=== PATIENT | female | born 1990 | race Caucasian/White ===

== ENCOUNTER 2016-12-09 21:35 | Emergency (ER) | payer OTHER ==
[~2016-12-09] VITALS: Ht 177.8 cm; Wt 90.7 kg
[~2016-12-09 21:35] MED LIST: CIPROFLOXACIN500 MG PO; PYRIDIUM100 MG PO
[2016-12-09 21:43] VITALS: BP 122/82
--- NOTE | 2016-12-09 21:54 | ED UPPER/LOWER EXTREMITY COMPL ---
History of Present Illness General Chief Complaint: Lower Extremity Problems Stated Complaint: " LT FOOT SWOLLEN AND PAIN SINCE TODAY" Source: patient, family Exam Limitations: no limitations Vital Signs & Intake/Output Vital Signs & Intake/Output Vital Signs Date Time Temp Pulse Resp B/P Pulse O2 O2 Flow FiO2 Ox Delivery Rate 12/093 98.4 101 20 122/82 97 Room Air Allergies Coded Allergies: cefprozil (From CEFZIL) (Mild, RASH 12/09/16) Reconcile Medications CIPROFLOXACIN HCL (Ciprofloxacin HCl) 500 MG TAB 1 TAB PO BID UTI PHENAZOPYRIDINE HCL (Pyridium) 100 MG TAB 100 MG PO TID PRN URINARY PAIN Triage Note: TRIAGE: PT TO ER C/C L FOOT PAINFUL AND SWOLLEN SINCE APPROX 3 PM. ONSET WHILE AT WORK A ELECT[employer]. STATES THE VEIN IS POPPING OUT. DENIES ANY INJURY. Triage Nurses Notes Reviewed? yes Onset: Abrupt Duration: day(s): (1) Timing: single episode today Severity: mild Method of Injury: NO INJURY : No Patient currently breastfeeds: No HPI: This is a 26-year-old healthy female presents to the ER chief complaint of left foot pain and some swelling that started today. Patient states that she works in a [employer] and stands on her feet all day long. Denies any trauma. She has been wearing some new shoes but denies that that they have been giving her any pain. No control use. She states that her vein looked like it was popping out and became worried and wanted to come to the ER. Pain is mild in intensity. She does not want anything for pain. Past History Travel History Traveled to [place] past 21 day No Medical History Any Pertinent Medical History? see below for history Neurological: NONE EENT: NONE Cardiovascular: NONE Respiratory: NONE Gastrointestinal: NONE Hepatic: NONE Renal: NONE Musculoskeletal: NONE Psychiatric: substance abuse Endocrine: NONE Blood Disorders: NONE Cancer(s): NONE PIPE FITTER AMMONIA/Reproductive: NONE Surgical History Surgical History: N Psychosocial History What is your primary language Sierra Leonean Tobacco Use: Current Daily Use Daily Tobacco Use Amount/Type: => 5 Cigarettes daily ETOH Use: denies use Illicit Drug Use: denies illicit drug use Family History Hx Contributory? No Review of Systems Review of Systems Constitutional: Denies: chills, fever. EENTM: Reports: no symptoms. Respiratory: Reports: no symptoms. Cardiovascular: Denies: chest pain. Gastrointestinal/Abdominal: Reports: no symptoms. Genitourinary: Reports: no symptoms. Musculoskeletal: Reports: joint pain. Skin: Reports: no symptoms. Neurological/Psychological: Reports: no symptoms. Hematologic/Endocrine: Reports: bruising. Denies: bleeding, polyuria, polydipsia. Immunological: Reports: no symptoms. All Other Systems: Reviewed and Negative Physical Exam Physical Exam General Appearance: well developed/nourished, alert, awake, mild distress Head: atraumatic Eyes: Bilateral: PERRL, EOMI. Ears, Nose, Throat: normal pharynx, normal ENT inspection, hearing grossly normal Neck: normal inspection, supple Cardiovascular/Respiratory: regular rate/rhythm Back: normal inspection Skin: intact, normal color, warm/dry Lymphatic: no anterior cervical zoila Progress Differential Diagnosis: contusion, STRESS FRACTURE Plan of Care: Orders Procedure Date/time Status XRY-FOOT COMPLETE, LEFT 12/09 2156 Active Diagnostic Imaging: Viewed by Me: Radiology Read. Discussed w/RAD: Radiology Read. Radiology Impression: PATIENT: JOSE HARRIS PRESENT AGE: 26 PATIENT ACCOUNT NO: [id number] : 88 LOCATION: [facility] ORDERING PHYSICIAN: CODIE MCNAMARA MD SERVICE DATE: 12/09/16 EXAM TYPE: RAD - XRY-FOOT COMPLETE, LEFT EXAMINATION: XR FOOT, LEFT CLINICAL INFORMATION: Left foot pain and swelling. Evaluate for a fracture. COMPARISON: No relevant prior studies are available for comparison. TECHNIQUE: AP, lateral, and oblique views of the left foot. FINDINGS: No fracture or dislocation. No significant joint space narrowing or marginal osteophytosis. No osseous erosion. No significant ankle joint effusion. No abnormal soft tissue calcification. IMPRESSION: Normal radiographic examination of the left foot. DICTATED BY: NORBERTO CORNELIUS MD DATE/TIME DICTATED:12/09/162235 DIVE SUPERINTENDENT:EDILBERTO DATE/TIME TRANSCRIBED:12/09/162235 CONFIDENTIAL, DO NOT COPY WITHOUT APPROPRIATE AUTHORIZATION. <Electronically signed in Other Vendor System> SIGNED BY: NORBERTO CORNELIUS MD 12/09/162240 Departure Departure Time of Disposition: 2238 Disposition: HOME OR SELF CARE Condition: Stable Clinical Impression Primary Impression: Foot contusion Referrals: PATIENT HAS NO PRIMARY CARE DR (PCP/Family) Additional Instructions: TAKE MOTRIN OR TYLENOL NEEDED FOR PAIN/SWELLING. ICE, REST AND ELEVATE THE FOOT. RETURN NEEDED. Departure Forms: Customer Survey General Discharge Information
--- NOTE | 2016-12-09 22:41 | RADIOLOGY REPORT ---
EXAMINATION: XR FOOT, LEFT CLINICAL INFORMATION: Left foot pain and swelling. Evaluate for a fracture. COMPARISON: No relevant prior studies are available for comparison. TECHNIQUE: AP, lateral, and oblique views of the left foot. FINDINGS: No fracture or dislocation. No significant joint space narrowing or marginal osteophytosis. No osseous erosion. No significant ankle joint effusion. No abnormal soft tissue calcification. IMPRESSION: Normal radiographic examination of the left foot.
== END 2016-12-09 22:41 ==
LOC: ERH 21:35
DX: S90.30XA Contusion of unspecified foot, initial encounter (principal); X58.XXXA Exposure to other specified factors, initial encounter
CPT/HCPCS: 73630-LT